=== PATIENT | female | born 1995 | race Caucasian/White ===

== ENCOUNTER 2021-08-10 09:55 | Inpatient (IN) | payer OTHER ==
[2021-08-10] MEDS ORDERED: Promethazine HCl 25 MG/ML VIAL IM PRN ×2 (10:41→12:41)
[2021-08-10] MEDS ORDERED: Acetaminophen 500 MG TAB PO PRN (10:41)
[2021-08-10] MEDS ORDERED: Methylergonovine 0.2 MG/ML VIAL IM PRN (10:41)
[2021-08-10] MEDS ORDERED: Misoprostol 200 MCG TAB PR PRN (10:41)
[2021-08-10] MEDS ORDERED: Lidocaine 1% (PF) 30 ML VIAL SC PRN (10:41)
[2021-08-10] MEDS ORDERED: hydrALAZINE 20 MG/ML VIAL SLOW IVP PRN (10:41)
[2021-08-10] MEDS ORDERED: Docusate 100 MG CAP PO PRN (10:41)
[2021-08-10] MEDS ORDERED: HYDROcodone/Acetaminophen 5/325 mg Tablet PO PRN (10:41)
[2021-08-10] MEDS ORDERED: Ibuprofen 800 MG TAB PO PRN (10:41)
[2021-08-10] MEDS ORDERED: Ondansetron PF 4 MG/2 ML Vial IVP PRN ×2 (10:41→12:41)
[2021-08-10] MEDS ORDERED: Carboprost 250 MCG/ML AMP IM PRN (10:41)
[2021-08-10] MEDS ORDERED: Butorphanol Tartrate 1 MG/ML VIAL SLOW IVP PRN (10:41)
[2021-08-10] MEDS ORDERED: Diphenoxylate HCl/Atropine Tablet PO PRN ×2 (10:41)
[2021-08-10] MEDS ORDERED: Lactated Ringer's 1,000 ML IV SCH (10:45)
[2021-08-10] MEDS ORDERED: NS w/ Oxytocin 30 units 500 ML IV SCH (10:45)
[2021-08-10 10:52] VITALS: BMI 25.3
[2021-08-10] MEDS ORDERED: Penicillin G Potassium 5 MILL.UNITS in Sodium Chloride 0.9% 100 ML IVPB SCH (11:00)
[2021-08-10 11:21] LABS: Hemoglobin 8.7 g/dL (12.0-15.5); Mean Corpuscular HGB CONC 32.2 g/dL (32.0-36.0); Mean Corpuscular Hemoglobin 23.8 pg (27.0-33.0); Mean Corpuscular Volume 73.8 fl (81.6-98.3); Mean Platelet Volume 10.5 fl (7.4-10.4); Platelet Count 348 10x3/uL (150-450); RBC Distribution Width 14.5 % (11.5-14.5); Red Blood Cell (RBC) Count 3.66 10x6/uL (3.90-5.03); White Blood Cell (WBC) Count 11.3 10x3/uL (3.5-10.5)
[2021-08-10] MEDS ORDERED: Fentanyl 2 mcg/Bup 0.1% Cadd 100 ML ONE ×2 (11:42→20:51)
[2021-08-10 12:02] LABS: Hep B Surf Ag Non-Reactive S/CO (NonReactive); Syphilis Antibody Nonreactive (Nonreactive); Syphilis Antibody Index 0.04 S/CO (<1.00 Non-Reactive)
[2021-08-10 12:04] LABS: HBSAg Index 0.18 S/CO (0-0.99)
[2021-08-10] MEDS ORDERED: Lactated Ringer's 500 ML IV PRN (12:41)
[2021-08-10] MEDS ORDERED: diphenhydrAMINE 50 MG/ML VIAL IVP PRN (12:41)
[2021-08-10] MEDS ORDERED: Hydrocerin (Eucerin) Cream 120 gm Jar TOP PRN (12:41)
[2021-08-10] MEDS ORDERED: Acetaminophen 325 MG TAB PO PRN (12:41)
[2021-08-10] MEDS ORDERED: ePHEDrine Sulfate 50 MG/10 ML VIAL SLOW IVP PRN (12:41)
[2021-08-10] MEDS ORDERED: Naloxone HCl 0.4 mg/ml Vial IVP PRN ×2 (12:41)
[2021-08-10] MEDS ORDERED: Communication Order-Pharmacy FS SCH (12:45)
[2021-08-10] MEDS ORDERED: Fentanyl 2 mcg/Bupivacaine 0.1% Cassette 100 ML EPIDURAL SCH (12:45)
[2021-08-10] MEDS: NS w/ Oxytocin 30 units 500 ML IV SCH (12:57)
[2021-08-10] MEDS: Penicillin G 2.5 MILL.units 2.5 MILL.UNITS in Premix Bag 1 BAG IVPB SCH ×2 (17:03→21:14)
[2021-08-10] MEDS ORDERED: Calcium Carbonate 500 MG ChewTAB PO PRN (22:32)
[2021-08-10 23:17] LABS: SARS-CoV-2 PCR by NAA Not Detected (NotDetected)
[2021-08-11] MEDS: Penicillin G 2.5 MILL.units 2.5 MILL.UNITS in Premix Bag 1 BAG IVPB SCH ×2 (01:12→05:03)
[2021-08-11] MEDS ORDERED: Fentanyl 2 mcg/Bup 0.1% Cadd 100 ML ONE (03:58)
[2021-08-11] MEDS ORDERED: Bupivacaine HCl 0.5%/Epinephrine 1:200,000/PF 30 ml Vial ONE (08:00)
[2021-08-11] MEDS ORDERED: Bupivacaine/Epinephrine 0.25% 30 ML VIAL ONE (08:00)
[2021-08-11] MEDS ORDERED: Bupivacaine 0.25% HCL 30 ML VIAL ONE (08:00)
[2021-08-11] MEDS ORDERED: Misoprostol 200 MCG TAB ONE (08:17)
[2021-08-11] MEDS ORDERED: Methylergonovine 0.2 MG/ML VIAL ONE (08:17)
[2021-08-11] MEDS: NS w/ Oxytocin 30 units 500 ML IV SCH (09:13)
[2021-08-11] MEDS ORDERED: diphenhydrAMINE 25 MG CAP PO PRN (10:57)
[2021-08-11] MEDS ORDERED: Measles/Mumps/Rubella 10 MCG/0.5 ML VIAL SC ONE (10:57)
[2021-08-11] MEDS ORDERED: Promethazine HCl 25 MG/ML VIAL IM PRN (10:57)
[2021-08-11] MEDS ORDERED: Lanolin Ointment 7 GM TUBE TOP PRN (10:57)
[2021-08-11] MEDS ORDERED: Methylergonovine 0.2 MG/ML VIAL IM PRN (10:57)
[2021-08-11] MEDS ORDERED: Bisacodyl 10 MG SUPP PR PRN (10:57)
[2021-08-11] MEDS ORDERED: NS w/ Oxytocin 30 units 500 ML IV SCH (10:57)
[2021-08-11] MEDS ORDERED: Zolpidem Tartrate 5 MG TAB PO PRN (10:57)
[2021-08-11] MEDS ORDERED: Preparation H Ointment 28 GM TUBE PR PRN (10:57)
[2021-08-11] MEDS ORDERED: Ibuprofen 800 MG TAB PO SCH (10:57)
[2021-08-11] MEDS ORDERED: Boostrix 0.5 ML (Tdap) VIAL IM ONE (10:57)
[2021-08-11] MEDS ORDERED: Misoprostol 200 MCG TAB VAG PRN (10:57)
[2021-08-11] MEDS ORDERED: Ondansetron PF 4 MG/2 ML Vial IVP PRN (10:57)
[2021-08-11] MEDS ORDERED: Benzocaine-Menthol 82.5 ML CAN TOP PRN (10:57)
[2021-08-11] MEDS ORDERED: Milk Of Magnesia 30 ML UDCUP PO PRN (10:57)
[2021-08-11] MEDS ORDERED: hydrALAZINE 20 MG/ML VIAL SLOW IVP PRN (10:57)
[2021-08-11] MEDS ORDERED: Varicella virus, LIVE 0.5 ML VIAL SC ONE (10:57)
[2021-08-11 11:04] LABS: HIV (1/2) Antibody/Antigen Non-Reactive (NonReactive); HIV 1/2 INDEX 0.08 S/CO (<1.00)
[2021-08-11] MEDS ORDERED: Prenatal Vitamin 1 TAB PO SCH (11:15)
[2021-08-11] MEDS ORDERED: Ferrous Sulfate 325 MG TAB PO SCH (11:15)
[2021-08-11] MEDS ORDERED: Docusate 100 MG CAP PO SCH (11:15)
[2021-08-11] MEDS: Ibuprofen 800 MG TAB PO SCH ×2 (13:05→20:57)
[2021-08-11] MEDS: HYDROcodone/Acetaminophen 5/325 mg Tablet PO PRN ×2 (17:48→21:56)
[2021-08-11] MEDS: Ferrous Sulfate 325 MG TAB PO SCH (17:48)
[2021-08-11] MEDS: Docusate 100 MG CAP PO SCH (20:57)
[2021-08-12 04:25] LABS: Hemoglobin 7.6 g/dL (12.0-15.5); Mean Corpuscular HGB CONC 31.9 g/dL (32.0-36.0); Mean Corpuscular Hemoglobin 23.8 pg (27.0-33.0); Mean Corpuscular Volume 74.4 fl (81.6-98.3); Mean Platelet Volume 10.1 fl (7.4-10.4); Platelet Count 269 10x3/uL (150-450); RBC Distribution Width 14.6 % (11.5-14.5); White Blood Cell (WBC) Count 12.4 10x3/uL (3.5-10.5)
[2021-08-12] MEDS: Ibuprofen 800 MG TAB PO SCH ×3 (04:37→21:12)
[2021-08-12] MEDS: HYDROcodone/Acetaminophen 5/325 mg Tablet PO PRN (04:38)
[2021-08-12] MEDS: Ferrous Sulfate 325 MG TAB PO SCH ×2 (09:39→18:36)
[2021-08-12] MEDS: Docusate 100 MG CAP PO SCH ×2 (09:39→21:12)
[2021-08-12] MEDS: Prenatal Vitamin 1 TAB PO SCH (09:40)
[2021-08-13] MEDS: Ibuprofen 800 MG TAB PO SCH ×2 (05:04→13:02)
[2021-08-13 08:41] VITALS: BP 117/55; TEMP 98.1
[2021-08-13] MEDS: Prenatal Vitamin 1 TAB PO SCH (09:23)
[2021-08-13] MEDS: Docusate 100 MG CAP PO SCH (09:23)
[2021-08-13] MEDS: Ferrous Sulfate 325 MG TAB PO SCH (09:23)
== END 2021-08-13 13:20 | disposition home or self-care (01) | DRG 806 ==
LOC: CSHLD 09:55 → CSHPP 08-11 10:45
PROVIDERS: ADMIT Obstetrics & Gynecology; ATTEND Obstetrics & Gynecology
PROC: 10D07Z6 Extraction of Products of Conception, Vacuum, Via Natural or Artificial Opening (ICD-10-PCS; principal; 2021-08-11)
PROC: 10D17Z9 Manual Extraction of Products of Conception, Retained, Via Natural or Artificial Opening (ICD-10-PCS; 2021-08-11)
DX: O43.893 Other placental disorders, third trimester (principal); O41.03X0 Oligohydramnios, third trimester, not applicable or unspecified; Z37.0 Single live birth; Z3A.37 37 weeks gestation of pregnancy; Z20.822 Contact with and (suspected) exposure to COVID-19; O36.8130 Decreased fetal movements, third trimester, not applicable or unspecified; Z88.5 Allergy status to narcotic agent; Z91.018 Allergy to other foods; O76 Abnormality in fetal heart rate and rhythm complicating labor and delivery; O32.8XX0 Maternal care for other malpresentation of fetus, not applicable or unspecified
CPT/HCPCS: 36415; 51702; 85027; 86780; 86850; 86900; 86901; 87340; 87389; 88307; J2405; J2540; J2590; J3490; S0020; U0003; U0005